=== PATIENT | female | born 1970 | race Caucasian/White ===

== ENCOUNTER 2020-10-12 21:04 | Observation (INO) ==
[2020-10-13] MEDS ORDERED: haloperidoL 5 MG TABLET PO PRN (00:29)
[2020-10-13] MEDS ORDERED: *HR* LORazepam 2 MG/ML VIAL IM PRN (00:29)
[2020-10-13] MEDS ORDERED: hydrOXYzine pamoate 25 MG CAPSULE PO PRN (00:29)
[2020-10-13] MEDS ORDERED: Ibuprofen 400 MG TABLET PO PRN (00:29)
[2020-10-13] MEDS ORDERED: traZODone 50 MG TABLET PO PRN (00:29)
[2020-10-13] MEDS ORDERED: *HR* LORazepam 1 MG TABLET PO PRN (00:29)
[2020-10-13] MEDS ORDERED: Mag Hydrox/Al Hydrox/Simeth 30 ML UDC PO PRN (00:29)
[2020-10-13] MEDS ORDERED: MOM Conc 10 ML UD.LIQ PO PRN (00:29)
[2020-10-13] MEDS ORDERED: Haloperidol Lactate 5 MG/ML VIAL IM PRN (00:29)
[2020-10-13] MEDS: BuPROPion XL (24 HR) 150 MG TABLET PO SCH (09:35)
[2020-10-13] MEDS: *HR* LORazepam 0.5 MG TABLET PO SCH ×2 (09:35→21:20)
[2020-10-13] MEDS ORDERED: Melatonin 3 MG TABLET PO SCH (21:45)
[2020-10-14] MEDS: BuPROPion XL (24 HR) 150 MG TABLET PO SCH (09:13)
[2020-10-14] MEDS: *HR* LORazepam 0.5 MG TABLET PO SCH (09:14)
[2020-10-14 10:03] VITALS: BP 127/78
== END 2020-10-14 11:20 | disposition home or self-care (01) ==
LOC: EMEROOARM 21:04 → 1ANU 10-13 00:03 → INTOOBSV 10-13 00:03 → 1ANU 10-13 01:27
PROVIDERS: ADMIT Psychiatry & Neurology Psychiatry; ATTEND Psychiatry & Neurology Psychiatry